=== PATIENT | female | born 1990 | race Caucasian/White ===

== ENCOUNTER 2021-10-01 08:13 | Inpatient (IN) ==
[2021-10-01] MEDS ORDERED: EPHEDrine 50 MG/ML VIAL IVP PRN (08:38)
[2021-10-01] MEDS ORDERED: Epidural Premix (fent/bupiv) 110 ML EP SCH (08:45)
[2021-10-01] MEDS ORDERED: Naloxone 0.4 MG/ML INJ IVP PRN (09:18)
[2021-10-01] MEDS ORDERED: Famotidine 20 MG/2 ML VIAL IVP PRN (09:18)
[2021-10-01] MEDS ORDERED: Metoclopramide 10 MG/2 ML VIAL IVP PRN (09:18)
[2021-10-01] MEDS ORDERED: Ringers Solution, Lactated 1,000 ML ONE ×2 (09:35→13:16)
[2021-10-01 10:53] LABS: Basophils # 0.1 K/mcL (0.0-0.2); Basophils % 0.6 %; Eosinophils # 0.1 K/mcL (0.0-0.6); Hemoglobin 12.2 g/dL (11.5-15.4); Immature Granulocytes % 0.5 % (0-4); Lymphocytes # 1.8 K/mcL (0.6-4.6); Mean Corpuscular HGB Conc 33.9 g/dL (31.6-35.5); Mean Corpuscular Hemoglobin 31.8 pg (28.0-33.3); Mean Corpuscular Volume 93.8 fL (83.0-100.0); Mean Platelet Volume 10.6 fL (9.4-12.4); Monocytes # 0.8 K/mcL (0.0-1.3); Monocytes % 9.6 %; Neutrophils # 5.1 K/mcL (1.6-8.9); Platelet Count 247 K/mcL (140-400); Red Blood Count 3.84 M/mcL (3.82-4.97); Red Cell Distribution Width 12.8 % (11.5-14.5); Segmented Neutrophils % 65.3 %; White Blood Count 7.8 K/mcL (4.3-11.1)
[2021-10-01 11:59] LABS: Amphetamine Screen,Urine Negative ng/mL (Cutoff=1000); Barbiturate Screen,Urine Negative ng/mL (Cutoff=200); Benzodiazepines Screen,Urine Negative ng/mL (Cutoff=200); Cannabinoid Screen,Urine Positive ng/mL (Cutoff = 50); Cocaine Screen,Urine Negative ng/mL (Cutoff= 300); Opiate Screen,Urine Negative ng/mL (Cutoff=300); Phencyclidine Screen,Urine Negative ng/mL (Cutoff=25)
[2021-10-01] MEDS ORDERED: miSOPROStoL 25 MCG TABLET VG SCH (12:00)
[2021-10-01] MEDS ORDERED: Oxytocin 30 UNIT/503 ML BAG IVC SCH (15:15)
[2021-10-02] MEDS ORDERED: Ondansetron ODT 4 MG TAB.RAPDIS SL PRN (00:12)
[2021-10-02] MEDS ORDERED: Benzocaine/Menthol 56 GM AEROSOL SPRAY TP PRN (00:12)
[2021-10-02] MEDS ORDERED: OXYTOCIN/RINGERS LACTATE 10 UNIT/166.6 ML BAG IVC ONE (00:12)
[2021-10-02] MEDS ORDERED: Lanolin 7 G OINT...G. TP PRN (00:12)
[2021-10-02] MEDS ORDERED: Oxytocin 30 UNIT/503 ML BAG IVC SCH (00:12)
[2021-10-02] MEDS: Acetaminophen 325 MG TABLET PO SCH ×4 (00:35→21:58)
[2021-10-02] MEDS: Ibuprofen 600 MG TABLET PO SCH ×4 (00:36→21:58)
[2021-10-02 04:06] LABS: Basophils # 0.1 K/mcL (0.0-0.2); Basophils % 0.3 %; Eosinophils % 0.1 %; Hemoglobin 12.5 g/dL (11.5-15.4); Immature Granulocytes % 0.6 % (0-4); Lymphocytes # 2.1 K/mcL (0.6-4.6); Lymphocytes % 9.7 %; Mean Corpuscular HGB Conc 34.7 g/dL (31.6-35.5); Mean Corpuscular Hemoglobin 32.2 pg (28.0-33.3); Mean Corpuscular Volume 92.8 fL (83.0-100.0); Mean Platelet Volume 10.1 fL (9.4-12.4); Monocytes # 1.3 K/mcL (0.0-1.3); Monocytes % 6.2 %; Neutrophils # 17.6 K/mcL (1.6-8.9); Platelet Count 227 K/mcL (140-400); Red Blood Count 3.88 M/mcL (3.82-4.97); Red Cell Distribution Width 12.6 % (11.5-14.5); Segmented Neutrophils % 83.1 %
[2021-10-02 04:07] LABS: White Blood Count 21.2 K/mcL (4.3-11.1)
[2021-10-02] MEDS ORDERED: Prenatal Vit/FA 1 EACH TABLET PO SCH (09:00)
[2021-10-02] MEDS ORDERED: FLUoxetine 20 MG CAPSULE PO SCH (09:00)
[2021-10-02 20:07] VITALS: BP 126/74; PULSE 75; TEMP 97.7; O2SAT 97
== END 2021-10-02 22:45 | disposition home or self-care (01) | DRG 560 ==
LOC: 1NENULAB 08:13 → 1NENUOBS 23:45
PROVIDERS: ADMIT Student in an Organized Health Care Education/Training Program; ATTEND Student in an Organized Health Care Education/Training Program